=== PATIENT | female | born 1950 ===

== ENCOUNTER 2018-04-22 13:11 | Emergency (ER) | payer OTHER ==
[~2018-04-22] VITALS: Ht 157.5 cm; Wt 69.9 kg
[2018-04-22] MEDS ORDERED: VERAPAMIL ER240 MG PO (13:27)
[2018-04-22] MEDS ORDERED: LOSARTAN POTAS100 MG PO (13:27)
== END 2018-04-22 16:16 | disposition home or self-care (01) ==
LOC: ER 13:11
DX: K29.60 Other gastritis without bleeding (principal)